=== PATIENT | female | born 1970 | race Caucasian/White ===

== ENCOUNTER 2022-07-21 08:10 | Outpatient (CLI) | payer OTHER ==
[2022-07-21 14:47] LABS: CALCIUM 9.5 mg/dL (8.5-10.3); CREATININE 0.7 mg/dL (0.4-1.0); POTASSIUM 4.4 mmol/L (3.5-5.0)
== END 2022-07-21 08:11 | disposition home or self-care (01) ==
LOC: LAB.S 08:10
PROVIDERS: ATTEND Registered Nurse
DX: R51.9 Headache, unspecified (principal); R03.0 Elevated blood-pressure reading, without diagnosis of hypertension
CPT/HCPCS: 36415; 80048

== ENCOUNTER 2022-08-10 14:49 | Outpatient (CLI) | payer OTHER ==
[2022-08-10] MEDS ORDERED: iohexoL-300 100 ML VIAL ONE (15:02)
[2022-08-10] MEDS ORDERED: iohexoL-300 100 ML VIAL IVP ONE (16:14)
--- NOTE | 2022-08-10 16:26 | CT Report ---
PROCEDURE: ANGIO HEAD W/WO INDICATIONS: HEADACHE CONTRAST: 80mL Omni 300 TECHNIQUE: Precontrast 4.5 mm thick angled axial sections acquired from the foramen magnum to the vertex. Afte r the administration of intravenous contrast, 1 mm thick sections acquired through the [place] of [place] is. Postcontrast 4.5 mm thick sections then re-acquired from the foramen magnum to the vertex. 3-di mensional pbqnmoa-vaozenwiy-hnualtoaga (MIP) and/or volume rendering reformats were acquired of the c entral intracranial vasculature. For radiation dose reduction, the following was used: automated ex posure control, adjustment of mA and/or kV according to patient size. COMPARISON: CTA neck 08/10/2022 FINDINGS: Image quality: Excellent. Anterior circulation: Intracranial internal carotid arteries are normal in size and flow. The flow within the paired anterior cerebral arteries is normal and symmetric. The flow within the middle cer ebral arteries is normal and symmetric. The anterior communicating artery is seen. No aneurysms are seen. Posterior circulation: There is a right vertebral artery dominance. Visualized portions of the verteb ral arteries demonstrate normal caliber, and join to form a normal appearing basilar artery. Flow wi thin the posterior cerebral arteries is normal and symmetric. No aneurysms are seen. CSF spaces: Ventricles are normal in size and shape. Basal cisterns are patent. No extra-axial flu id collections. Brain: No midline shift. No intracranial bleeds or masses. Parker-white matter interface appears int act. Skull and face: Calvarium and facial bones appear intact, without suspicious lesions. Sinuses: Visualized sinuses and mastoids are clear. IMPRESSION: 1. No acute intracranial process. 2. No areas of hemodynamically significant stenosis, vascular occlusion or aneurysmal dilation within the anterior or posterior circulation. Reviewed by: Elizabeth Segal MD on 08/10/2022 4:24 PM PST Approved by: Elizabeth Segal MD on 08/10/2022 4:24 PM PST Station ID: [id number]
--- NOTE | 2022-08-10 16:28 | CT Report ---
PROCEDURE: ANGIO NECK W INDICATIONS: NECK PAIN, ELEVATED BLODD PRESSURE CONTRAST: 80mL Omni 300 TECHNIQUE: After the administration of intravenous contrast, 1.5 mm axial sections acquired from the aortic arch to the [place] of [place]. Coronal 3-D maximum intensity projection (MIP) and/or volume rendering ref ormats were then performed. For radiation dose reduction, the following was used: automated exposur e control, adjustment of mA and/or kV according to patient size. COMPARISON: MRA head 08/10/2022 FINDINGS: Image quality: Excellent. Carotid system: The great vessels demonstrate a conventional anatomy as they arise from the aortic a rch. The origins of the common carotid arteries appear patent. The common carotid arteries demonstr ate normal calibers and courses. The bifurcation regions appear normal bilaterally. The internal ca rotid arteries demonstrate normal caliber and course. Posterior circulation: There is a right vertebral artery dominance. The origins of the vertebral cielo jim appear patent. The more superior portions of the vertebral arteries demonstrate normal course a nd caliber. They join to form a normal appearing basilar artery. Soft tissues: Visualized neck soft tissues demonstrate no suspicious abnormalities. The thyroid dem onstrates partially enhancing low-attenuation foci bilaterally. Bones: No suspicious bony lesions. Visualized cervical spine appears normally aligned. IMPRESSION: There are no areas of hemodynamically significant stenosis, vascular occlusion or aneurysmal dilation within the neck vasculature. Multiple low-attenuation foci within the thyroid gland. Thyroid ultrasound is recommended for further evaluation. The estimate of stenosis included in the report of the imaging study was calculated using the NASCET method CLINICAL RECOMMENDATION STATEMENTS: In patients <35 years with an ITN detected on CT, MRI, or extrathyroidal ultrasound, the Committee re commends further evaluation with dedicated thyroid ultrasound if the nodule is "e1 cm and has no susp icious imaging features, and if the patient has normal life expectancy. In patients "e35 years with an ITN detected on CT, MRI, or extrathyroidal ultrasound, the Committee r ecommends further evaluation with dedicated thyroid ultrasound if the nodule is "e1.5 cm and has no s uspicious imaging features, and if the patient has normal life expectancy. (ACR, 2014) Reviewed by: Elizabeth Segal MD on 08/10/2022 4:26 PM PST Approved by: Elizabeth Segal MD on 08/10/2022 4:26 PM PST Station ID: [id number]
== END 2022-08-10 14:50 | disposition home or self-care (01) ==
LOC: DI 14:49
PROVIDERS: ATTEND Registered Nurse
DX: M54.2 Cervicalgia (principal); R51.9 Headache, unspecified; R03.0 Elevated blood-pressure reading, without diagnosis of hypertension
CPT/HCPCS: 70496; 70498; Q9967